=== PATIENT | female | born 2000 | race Caucasian/White ===

== ENCOUNTER 2023-05-05 21:41 | Emergency (ER) | payer OTHER ==
[~2023-05-05] VITALS: Ht 160 cm; Wt 83.9 kg
[2023-05-05 22:30] LABS: BASO % 0.2 % (0.0-1.0); EOS # 0.2 10*3/uL (0.0-0.4); EOS % 1.5 % (1.0-4.0); HEMATOCRIT 44.4 % (37.0-47.0); LYMPH # 1.3 10*3/uL (1.3-4.4); LYMPH % 11.5 % (27.0-41.0); MEAN CELL VOLUME 89.9 fl (81.0-99.0); MEAN CORPUSCULAR HGB 29.6 pg (27.0-31.0); MEAN CORPUSCULAR HGB CONC 32.9 g/dl (33.0-37.0); MEAN PLATELET VOLUME 9.5 fl (9.6-12.3); MONO # 0.7 10*3/uL (0.1-1.0); MONO % 5.8 % (3.0-9.0); NEUT # 9.2 10*3/uL (2.3-7.9); NEUT % 80.7 % (47.0-73.0); PLATELET COUNT AUTOMATED 333 10*3/uL (130-400); RED BLOOD COUNT 4.94 10*6/uL (4.10-5.10); RED CELL DISTRI WIDTH 13.4 % (0-14.5); WHITE BLOOD COUNT 11.4 10*3/uL (4.8-10.8)
[2023-05-05 22:53] LABS: ALKALINE PHOSPHATASE 85 U/L (46-116); BUN 10 mg/dl (9-23); CHLORIDE 109 mmol/L (98-107); LIPASE 35 U/L (12-53); POTASSIUM 3.8 mmol/L (3.4-5.1); SGPT/ALT 18 U/L (5-49); TOTAL PROTEIN 7.9 gm/dL (6.0-8.0)
== END 2023-05-05 23:18 | disposition home or self-care (01) ==
LOC: ED 21:41
PROVIDERS: Physician Assistant Medical
DX: B34.9 Viral infection, unspecified (principal); E05.90 Thyrotoxicosis, unspecified without thyrotoxic crisis or storm; Z20.822 Contact with and (suspected) exposure to COVID-19

== ENCOUNTER 2023-05-09 16:23 | Emergency (ER) | payer OTHER ==
[~2023-05-09] VITALS: Ht 165.1 cm; Wt 90.7 kg
[2023-05-09 17:41] LABS: BASO % 0.3 % (0.0-1.0); EOS # 0.5 10*3/uL (0.0-0.4); EOS % 5.2 % (1.0-4.0); HEMATOCRIT 41.8 % (37.0-47.0); LYMPH # 2.9 10*3/uL (1.3-4.4); LYMPH % 33.1 % (27.0-41.0); MEAN CORPUSCULAR HGB 29.7 pg (27.0-31.0); MEAN CORPUSCULAR HGB CONC 33.7 g/dl (33.0-37.0); MEAN PLATELET VOLUME 9.8 fl (9.6-12.3); MONO # 0.5 10*3/uL (0.1-1.0); NEUT # 4.8 10*3/uL (2.3-7.9); NEUT % 55.2 % (47.0-73.0); PLATELET COUNT AUTOMATED 358 10*3/uL (130-400); RED BLOOD COUNT 4.75 10*6/uL (4.10-5.10); RED CELL DISTRI WIDTH 13.2 % (0-14.5); WHITE BLOOD COUNT 8.6 10*3/uL (4.8-10.8)
[2023-05-09 17:44] LABS: BILIRUBIN 2+ (Negative); BLOOD Trace-Intact (Negative); CLARITY Cloudy (Clear); COLOR Dark Yellow (Yellow); GLUCOSE Negative (Negative); KETONE 2+ (Negative); LEUKO ESTERASE Trace (Negative); NITRITE Negative (Negative); SPECIFIC GRAVITY >= 1.030 (1.001-1.030)
[2023-05-09 17:56] LABS: BACTERIA 3+; MUCOUS 3+
[2023-05-09 18:05] LABS: ALKALINE PHOSPHATASE 80 U/L (46-116); BUN 10 mg/dl (9-23); CHLORIDE 108 mmol/L (98-107); LIPASE 42 U/L (12-53); POTASSIUM 3.5 mmol/L (3.4-5.1); SGPT/ALT 10 U/L (5-49); TOTAL PROTEIN 7.7 gm/dL (6.0-8.0)
[2023-05-09] MEDS ORDERED: TAPAZOLE PO (18:11)
[2023-05-09] MEDS ORDERED: PROPRANOLOL ER80 MG PO (18:12)
[2023-05-09] MEDS ORDERED: CIPRO500 MG PO (18:22)
== END 2023-05-09 18:55 | disposition home or self-care (01) ==
LOC: ED 16:23
PROVIDERS: Emergency Medicine
DX: N39.0 Urinary tract infection, site not specified (principal); R11.2 Nausea with vomiting, unspecified; R19.7 Diarrhea, unspecified; R63.0 Anorexia; Z79.899 Other long term (current) drug therapy; E05.90 Thyrotoxicosis, unspecified without thyrotoxic crisis or storm; Z90.49 Acquired absence of other specified parts of digestive tract

== ENCOUNTER 2024-05-19 18:37 | Emergency (ER) | payer OTHER ==
[~2024-05-19] VITALS: Ht 165.1 cm; Wt 90.7 kg
[~2024-05-19 18:37] MED LIST: CIPRO500 MG PO; PROPRANOLOL ER80 MG PO; TAPAZOLE PO
[2024-05-19] MEDS ORDERED: SODIUM CHLORIDE 0.9% 1,000 ML IV ONE (19:15)
[2024-05-19] MEDS ORDERED: Ondansetron Hydrochloride 4 MG/2 ML VIAL IV ONE (19:15)
[2024-05-19 19:27] LABS: BASO % 0.2 % (0.0-1.0); EOS # 0.2 10*3/uL (0.0-0.4); EOS % 1.9 % (1.0-4.0); HEMATOCRIT 40.5 % (37.0-47.0); MEAN CELL VOLUME 88.4 fl (81.0-99.0); MEAN CORPUSCULAR HGB 29.7 pg (27.0-31.0); MEAN CORPUSCULAR HGB CONC 33.6 g/dl (33.0-37.0); MEAN PLATELET VOLUME 10.1 fl (9.6-12.3); MONO # 0.6 10*3/uL (0.1-1.0); MONO % 5.8 % (3.0-9.0); NEUT # 8.6 10*3/uL (2.3-7.9); NEUT % 77.8 % (47.0-73.0); PLATELET COUNT AUTOMATED 278 10*3/uL (130-400); RED BLOOD COUNT 4.58 10*6/uL (4.10-5.10); RED CELL DISTRI WIDTH 12.6 % (0-14.5); WHITE BLOOD COUNT 11.1 10*3/uL (4.8-10.8)
[2024-05-19 19:49] LABS: ALKALINE PHOSPHATASE 44 U/L (46-116); BUN 11 mg/dl (9-23); CHLORIDE 106 mmol/L (98-107); POTASSIUM 3.9 mmol/L (3.4-5.1); SGPT/ALT 8 U/L (5-49); TOTAL PROTEIN 7.9 gm/dL (6.0-8.0)
[2024-05-19] MEDS ORDERED: Ketorolac Tromethamine 15 MG/ML VIAL IV ONE (20:05)
[2024-05-19 20:36] LABS: BILIRUBIN Negative (Negative); BLOOD 2+ (Negative); CLARITY Cloudy (Clear); COLOR Dark Yellow (Yellow); GLUCOSE Negative (Negative); KETONE Trace (Negative); LEUKO ESTERASE Trace (Negative); NITRITE Negative (Negative); PH 5.5 (4.5-8.0); SPECIFIC GRAVITY >= 1.030 (1.001-1.030)
[2024-05-19 20:50] LABS: BACTERIA 1+; FINE GRANULAR CAST 0-2; MUCOUS 2+; RBC 16-20 rbc/hpf (0-2)
[2024-05-19] MEDS ORDERED: ACETAMINOPHEN 325 MG TAB PO ONE (21:15)
[2024-05-19] MEDS ORDERED: Ondansetron4 MG PO (21:20)
[2024-05-19] MEDS ORDERED: CEPHALEXIN500 M1 PO (21:24)
[2024-05-19] MEDS ORDERED: CEPHALEXIN 500 MG CAP PO ONE (21:25)
== END 2024-05-19 21:48 | disposition home or self-care (01) ==
LOC: ED 18:37
PROVIDERS: Nurse Practitioner Family
DX: B34.9 Viral infection, unspecified (principal); N39.0 Urinary tract infection, site not specified; E05.90 Thyrotoxicosis, unspecified without thyrotoxic crisis or storm; Z20.822 Contact with and (suspected) exposure to COVID-19

== ENCOUNTER 2024-09-17 08:49 | Inpatient (IN) | payer OTHER ==
[2024-09-17] VITALS (8 sets, daily range): BP systolic 105–140; BP diastolic 54–91
[~2024-09-17] VITALS: Ht 165.1 cm; Wt 108.5 kg
[~2024-09-17 08:49] MED LIST changes: +CEPHALEXIN500 M1 PO; +Ondansetron4 MG PO
[2024-09-17] MEDS ORDERED: SODIUM CHLORIDE 0.9% 1,000 ML IV ONE ×2 (09:20→12:00)
[2024-09-17] MEDS ORDERED: Ketorolac Tromethamine 15 MG/ML VIAL IV ONE (09:25)
[2024-09-17] MEDS ORDERED: MORPHINE Sulfate 2 MG/ML SYR IV ONE (09:25)
[2024-09-17] MEDS ORDERED: Ondansetron Hydrochloride 4 MG/2 ML VIAL IV ONE ×2 (09:25→15:43)
[2024-09-17 09:35] LABS: BASO % 0.3 % (0.0-1.0); EOS # 0.5 10*3/uL (0.0-0.4); EOS % 3.8 % (1.0-4.0); HEMATOCRIT 37.3 % (37.0-47.0); MEAN CELL VOLUME 88.4 fl (81.0-99.0); MEAN CORPUSCULAR HGB 29.9 pg (27.0-31.0); MEAN CORPUSCULAR HGB CONC 33.8 g/dl (33.0-37.0); MEAN PLATELET VOLUME 9.7 fl (9.6-12.3); MONO # 0.6 10*3/uL (0.1-1.0); MONO % 5.1 % (3.0-9.0); NEUT # 9.3 10*3/uL (2.3-7.9); NEUT % 73.8 % (47.0-73.0); PLATELET COUNT AUTOMATED 284 10*3/uL (130-400); RED BLOOD COUNT 4.22 10*6/uL (4.10-5.10); RED CELL DISTRI WIDTH 13.5 % (0-14.5); WHITE BLOOD COUNT 12.6 10*3/uL (4.8-10.8)
[2024-09-17 09:57] LABS: ALKALINE PHOSPHATASE 42 U/L (46-116); BUN 8 mg/dl (9-23); CHLORIDE 111 mmol/L (98-107); LIPASE 39 U/L (12-53); POTASSIUM 3.6 mmol/L (3.4-5.1); SGPT/ALT 13 U/L (5-49); TOTAL PROTEIN 6.8 gm/dL (6.0-8.0)
[2024-09-17 10:00] LABS: B-hCG (QUALITATIVE) NEGATIVE (NEGATIVE)
[2024-09-17 10:13] LABS: BILIRUBIN Negative (Negative); BLOOD 3+ (Negative); GLUCOSE Negative (Negative); KETONE Trace (Negative); NITRITE Negative (Negative); PH 6.5 (4.5-8.0); SPECIFIC GRAVITY >= 1.030 (1.001-1.030)
[2024-09-17] MEDS ORDERED: Piperacillin Sodium/Tazobact 50 ML IV ONE (10:20)
[2024-09-17 10:24] LABS: CLARITY Turbid (Clear); COLOR Red (Yellow); LEUKO ESTERASE 1+ (Negative)
[2024-09-17 10:25] LABS: RBC TNTC rbc/hpf (0-2)
[2024-09-17 10:30] LABS: BACTERIA 1+
[2024-09-17] MEDS ORDERED: Ondansetron Hydrochloride 4 MG/2 ML VIAL IV PRN (10:50)
[2024-09-17] MEDS ORDERED: MORPHINE Sulfate 2 MG/ML SYR IV PRN (10:50)
[2024-09-17] MEDS ORDERED: METHIMAZOLE10 MG PO (11:24)
[2024-09-17] MEDS ORDERED: FAMOTIDINE20 M1 PO (11:24)
[2024-09-17] MEDS ORDERED: DROSPIRENONE-E1 EACH PO (11:25)
[2024-09-17] MEDS ORDERED: PANTOPRAZOLE SO40 MG PO (11:26)
[2024-09-17] MEDS ORDERED: AIRSUPRA 90-810.7 GM INH (11:29)
[2024-09-17] MEDS ORDERED: Ketorolac Tromethamine 30 MG/ML VIAL IV SCH (12:00)
[2024-09-17] MEDS ORDERED: BUPivacaine 0.5% 30 ML IV ONE (12:00)
[2024-09-17] MEDS ORDERED: Lactated Ringer's Solution 1,000 ML IV ONE (12:20)
[2024-09-17] MEDS ORDERED: ACETAMINOPHEN 100 ML IV ONE (12:21)
[2024-09-17] MEDS ORDERED: HYDROmorphONE Hydrochloride 0.5 MG/0.5 ML SYRINGE IV PRN (13:25)
[2024-09-17] MEDS ORDERED: fentaNYL CITRATE 100 MCG/2 ML VIAL IV ONE (15:43)
[2024-09-17] MEDS ORDERED: Dexamethasone Sodium Phospha 4 MG/ML VIAL IV ONE (15:43)
[2024-09-17] MEDS ORDERED: SEVOFLURANE 250 ML BOT INH ONE (15:43)
[2024-09-17] MEDS ORDERED: Lidocaine Hydrochloride 5 ML VIAL IV ONE (15:43)
[2024-09-17] MEDS ORDERED: PROPOFOL 200 MG/20 ML VIAL IV ONE (15:43)
[2024-09-17] MEDS ORDERED: Ketorolac Tromethamine 30 MG/ML VIAL IV ONE (15:43)
[2024-09-17] MEDS ORDERED: Midazolam Hydrochloride 2 MG/2 ML VIAL IV ONE (15:43)
[2024-09-17] MEDS ORDERED: Esmolol Hydrochloride 100 MG/10 ML VIAL IV ONE (15:43)
[2024-09-17] MEDS ORDERED: SUGAMMADEX SODIUM 200 MG/2 ML VIAL IV ONE (15:43)
[2024-09-17] MEDS ORDERED: ROCURONIUM BROMIDE 50 MG/5 ML SYRINGE IV ONE (15:43)
[2024-09-17] MEDS ORDERED: Piperacillin Sodium/Tazobact 50 ML IV SCH (16:00)
[2024-09-17] MEDS ORDERED: Propranolol Hydrochloride 80 MG CAP (LA) PO SCH (22:00)
[2024-09-17] MEDS ORDERED: METHIMAZOLE 5 MG TABLET PO SCH (22:00)
[2024-09-17] MEDS ORDERED: FAMOTIDINE 20 MG TAB PO SCH (22:00)
[2024-09-18] VITALS: BP 119/82
[2024-09-18 05:06] LABS: BUN 7 mg/dl (9-23); CHLORIDE 110 mmol/L (98-107); CHOLESTEROL 131 mg/dL (<200); LDL CHOLESTEROL 66 mg/dL (9-159); POTASSIUM 3.9 mmol/L (3.4-5.1); TRIGLYCERIDES 117 mg/dl (<150)
[2024-09-18 06:07] LABS: BASO % 0.2 % (0.0-1.0); EOS % 0.1 % (1.0-4.0); HEMATOCRIT 33.6 % (37.0-47.0); MEAN CELL VOLUME 90.1 fl (81.0-99.0); MEAN CORPUSCULAR HGB CONC 33.3 g/dl (33.0-37.0); MEAN PLATELET VOLUME 10.7 fl (9.6-12.3); MONO # 0.7 10*3/uL (0.1-1.0); MONO % 7.1 % (3.0-9.0); NEUT # 7.6 10*3/uL (2.3-7.9); NEUT % 75.1 % (47.0-73.0); PLATELET COUNT AUTOMATED 268 10*3/uL (130-400); RED BLOOD COUNT 3.73 10*6/uL (4.10-5.10); RED CELL DISTRI WIDTH 13.4 % (0-14.5); WHITE BLOOD COUNT 10.1 10*3/uL (4.8-10.8)
[2024-09-18 08:00] VITALS: BP 92/50
[2024-09-18] MEDS ORDERED: SODIUM CHLORIDE 0.9% 1,000 ML IV ONE (08:25)
[2024-09-18] MEDS ORDERED: SIMETHICONE 80 MG TAB PO PRN (08:25)
[2024-09-18] MEDS ORDERED: Nicotine 21 MG PATCH T SCH (10:00)
[2024-09-18] MEDS ORDERED: HYDROCODONE-AC1 EAC1 PO (11:49)
== END 2024-09-18 12:22 | disposition home or self-care (01) | DRG 710 ==
LOC: ED 08:49 → EDHOLD 10:30 → 4E 11:52
PROVIDERS: Emergency Medicine; Student in an Organized Health Care Education/Training Program; ADMIT Family Medicine; ATTEND Family Medicine
PROC: 0DTJ4ZZ Resection of Appendix, Percutaneous Endoscopic Approach (ICD-10-PCS; principal; 2024-09-17)
DX: A41.9 Sepsis, unspecified organism (principal); K35.30 Acute appendicitis with localized peritonitis, without perforation or gangrene; E87.8 Other disorders of electrolyte and fluid balance, not elsewhere classified; F17.291 Nicotine dependence, other tobacco product, in remission; E28.2 Polycystic ovarian syndrome; L73.2 Hidradenitis suppurativa; K21.9 Gastro-esophageal reflux disease without esophagitis; E05.90 Thyrotoxicosis, unspecified without thyrotoxic crisis or storm; N39.0 Urinary tract infection, site not specified; K38.1 Appendicular concretions; Z71.6 Tobacco abuse counseling; Z90.49 Acquired absence of other specified parts of digestive tract; Z82.49 Family history of ischemic heart disease and other diseases of the circulatory system; Z83.3 Family history of diabetes mellitus; Z83.6 Family history of other diseases of the respiratory system; Z79.899 Other long term (current) drug therapy

== ENCOUNTER 2025-01-30 23:40 | Emergency (ER) | payer OTHER ==
[~2025-01-30] VITALS: Ht 165.1 cm; Wt 99.8 kg
[~2025-01-30 23:40] MED LIST changes: +AIRSUPRA 90-810.7 GM INH; +DROSPIRENONE-E1 EACH PO; +FAMOTIDINE20 M1 PO; +HYDROCODONE-AC1 EAC1 PO; +METHIMAZOLE10 MG PO; +PANTOPRAZOLE SO40 MG PO
[2025-01-30] MEDS ORDERED: SODIUM CHLORIDE 0.9% 1,000 ML IV ONE (23:55)
[2025-01-30] MEDS ORDERED: Ondansetron Hydrochloride 4 MG/2 ML VIAL IV ONE (23:55)
[2025-01-31 00:21] LABS: BASO # 0.0 10*3/uL (0.0-0.1); BASO % 0.2 % (0.0-1.0); EOS # 0.4 10*3/uL (0.0-0.4); EOS % 2.5 % (1.0-4.0); MEAN CELL VOLUME 90.5 fl (81.0-99.0); MEAN CORPUSCULAR HGB 30.2 pg (27.0-31.0); MEAN PLATELET VOLUME 9.9 fl (9.6-12.3); MONO # 1.0 10*3/uL (0.1-1.0); MONO % 5.7 % (3.0-9.0); NEUT # 14.4 10*3/uL (2.3-7.9); NEUT % 80.9 % (47.0-73.0); NUCLEATED RED BLOOD CELL 0.0 % (0.0-0.0); NUCLEATED RED BLOOD CELL 0.0 10*3/uL (0.0-0.0); PLATELET COUNT AUTOMATED 268 10*3/uL (130-400); RED CELL DISTRI WIDTH 13.9 % (0-14.5)
[2025-01-31 00:46] LABS: BUN 9 mg/dl (9-23)
== END 2025-01-31 01:52 | disposition home or self-care (01) ==
LOC: ED 23:40
PROVIDERS: Internal Medicine
DX: B34.9 Viral infection, unspecified (principal); D72.829 Elevated white blood cell count, unspecified; R53.83 Other fatigue; R51.9 Headache, unspecified; I10 Essential (primary) hypertension; K21.9 Gastro-esophageal reflux disease without esophagitis; F12.90 Cannabis use, unspecified, uncomplicated; F17.210 Nicotine dependence, cigarettes, uncomplicated; Z90.49 Acquired absence of other specified parts of digestive tract; Z20.822 Contact with and (suspected) exposure to COVID-19

== ENCOUNTER 2025-02-21 14:32 | Emergency (ER) | payer SELFPAY ==
[~2025-02-21] VITALS: Ht 165.1 cm; Wt 99.8 kg
[2025-02-21] MEDS ORDERED: IBUPROFEN 600 MG TAB PO ONE (15:10)
[2025-02-21] MEDS ORDERED: ZITHROMAX250 MG PO (17:26)
== END 2025-02-21 17:37 | disposition home or self-care (01) ==
LOC: ED 14:32
DX: J02.9 Acute pharyngitis, unspecified (principal); R05.9 Cough, unspecified; R11.0 Nausea; K21.9 Gastro-esophageal reflux disease without esophagitis; J45.909 Unspecified asthma, uncomplicated; F17.210 Nicotine dependence, cigarettes, uncomplicated; Z90.49 Acquired absence of other specified parts of digestive tract